=== PATIENT | male | born 1970 | race Caucasian/White ===

== ENCOUNTER 2016-11-29 10:32 | Emergency (ER) | payer OTHER ==
[2016-11-29] MEDS ORDERED: KETOROLAC TROMETHAMINE 30 MG/ML 1 ML VIAL ONE (11:28)
[2016-11-29] MEDS ORDERED: METOCLOPRAMIDE HCL 5 MG/ML 2ML VIAL ONE (11:28)
[2016-11-29] MEDS ORDERED: DIPHENHYDRAMINE HCL 50 MG/1 ML VIAL ONE (11:28)
[2016-11-29 11:40] LABS: BASO % 0.3 % (0.2-1.0); HEMATOCRIT 46.8 % (32.0-52.0); HEMOGLOBIN 15.4 gm/l (14.0-18.0); IMM NEUT% 0.2 % (0-1); LYMPH # 1.7 (1.0-4.8); LYMPH % 27.9 % (15-45); MEAN CELL VOLUME 86.8 fl (80.0-94.0); MEAN CORPUSCULAR HEMOGLOBIN 28.6 pg (27.0-31.0); MEAN CORPUSCULAR HGB CONC 32.9 g/dl (33.0-37.0); MEAN PLATELET VOLUME 12.2 fl (7.4-10.4); MONO # 0.4 (0.0-0.8); NEUT % 64.6 % (43-75); PLATELET COUNT 171 K/mm3 (130-400); RED CELL DISTRIBUTION WIDTH 12.1 % (11.5-14.5)
[2016-11-29 11:53] LABS: ALB/GLOB RATIO 1.3 (>1.0); ALBUMIN 4.5 gm/dL (3.5-5.7); CALCIUM 10.2 mg/dL (8.6-10.3)
--- NOTE | 2016-11-29 12:10 | CT ---
HEAD W/O CON: 11/29/2016 11:29 AM CLINICAL HISTORY: Right-sided headache. COMPARISON: None. TECHNIQUE: Contiguous axial 5 mm images from skull base to the vertex were obtained without IV contrast. Sagittal and coronal reformations with bone algorithm images were also obtained at this time. CT DI:: 51.7 DLP: 938.9 FINDINGS: Infarct: None Extra axial spaces: Normal in size and morphology for the patient's age. Hemorrhage: None. Ventricular system: Normal in size and morphology for the patient's age. Basal cisterns: Normal. Cerebral parenchyma: Normal. Midline shift: None. Cerebellum: Normal. Brainstem: Normal. OTHER: Calvarium: Normal. Vascular system: Normal. Visualized Paranasal sinuses and Mastoid air cells: Clear. Visualized Orbits and regional soft tissues: Normal. IMPRESSION: No acute intracranial process. Findings were called to the emergency department at approximately 1205 hours on 11/29/2016.
== END 2016-11-29 13:07 | disposition home or self-care (01) ==
LOC: ED 10:32
DX: R51 Headache (principal); G50.0 Trigeminal neuralgia
CPT/HCPCS: 86141; 85025; 80053; 70450; 96375 ×2; 99284; 96374; 99283; J1200; J2765; J1885